=== PATIENT | male | born 1965 | race Caucasian/White ===

== ENCOUNTER 2021-01-24 13:43 | Emergency (ER) | payer BC ==
[2021-01-24 13:55] VITALS: BP 125/73; PULSE 74; BMI 26.6
[2021-01-24] MEDS ORDERED: DIPHTH,PERTUSS(ACELL),TET 0.5 ML DISP.SYRIN IM ONE ×2 (14:47→14:52)
== END 2021-01-24 15:21 | disposition home or self-care (01) ==
LOC: JERFT 13:43
PROC: 0H9DXZZ Drainage of Right Lower Arm Skin, External Approach (ICD-10-PCS; principal; 2021-01-24)
PROC: 3E0234Z Introduction of Serum, Toxoid and Vaccine into Muscle, Percutaneous Approach (ICD-10-PCS; 2021-01-24)
DX: L02.413 Cutaneous abscess of right upper limb (principal)
CPT/HCPCS: 87070; 87186; 87205; 90715; 99284-25

== ENCOUNTER 2021-01-26 12:10 | Emergency (ER) | payer BC ==
[2021-01-26 12:21] VITALS: BP 112/75; PULSE 71; TEMP 97; BMI 26.6
== END 2021-01-26 12:58 | disposition home or self-care (01) ==
LOC: JERFT 12:10
DX: Z48.00 Encounter for change or removal of nonsurgical wound dressing (principal)
CPT/HCPCS: 99281-25